=== PATIENT | male | born 1990 | race Caucasian/White ===

== ENCOUNTER 2016-11-19 23:43 | Emergency (ER) | payer SELFPAY ==
[~2016-11-19] VITALS: Ht 177.8 cm; Wt 85.0 kg
[~2016-11-19 23:43] MED LIST: ACET500C5 PO; OMEP20CA9 PO; ONDA4TAB35 PO; RANI150T9 PO
[2016-11-19 23:44] VITALS: Ht 177.8 cm; Wt 85.0 kg
--- NOTE | 2016-11-20 03:17 | ERA ---
ER Documentation Chief Complaint Date/Time DATE: 11/20/16 TIME: 03:09 Chief Complaint requesting ring on left 4th finger to be removed HPI This is a 26-year-old male who presents with a chief complaint of ring being stuck around his left fourth digit. Patient speaks [place] and the significant other is the platform operations director and seems reliable. Patient states that this ring is no significance and it is okay to be cut off. Patient's symptoms started 4 hours ago. They have tried to detach the ring from the finger but were unsuccessful. Patient has never had anything like this before. Patient denies diabetes or other medical conditions including asthma and cardiac disease. Patient has no other complaints at this time and there are no other associated manifestations. Medical history medications have been reviewed as in the nurse' s notes and are consistent. ROS All systems reviewed and are negative except as per history of present illness. Medications Home Meds Active Scripts Ibuprofen* (Motrin*) 400 Mg Tab, 400 MG PO Q8, #30 TAB Prov:SAMANTHA JETT PA-C 11/20/16 Ranitidine Hcl* (Zantac*) 150 Mg Tablet, 150 MG PO BID Y for epigastric pain, # 30 TAB Prov:MIRELA ARZATE. DOT COMPLIANCE SPECIALIST 01/12/15 Omeprazole* (Prilosec*) 20 Mg Capsule.dr, 20 MG PO DAILY for 14 Days, CAP Prov:MIRELA ARZATE NP 01/12/15 Ondansetron Hcl* (Zofran* ODT) 4 mg -ODT Tab.disper, 4 MG PO Q6 Y for NAUSEA AND /OR VOMITING, #10 TAB Prov:MIRELA ARZATE. DOT COMPLIANCE SPECIALIST 01/12/15 Acetaminophen* (Tylophen*) 500 Mg Capsule, 1 CAP PO Q6H Y for PAIN AND OR ELEVATED TEMP, #20 CAP Prov:MIRELA ARZATE. DOT COMPLIANCE SPECIALIST 01/12/15 Allergies Allergies: Coded Allergies: No Known Allergy (Unverified , 01/12/15) PMhx/Soc Medical and Surgical Hx: pt denies Medical Hx, pt denies Surgical Hx Hx Alcohol Use: Yes (occassional) Hx Substance Use: No Hx Tobacco Use: No Smoking Status: Never smoker Physical Exam Vitals Physical Exam Const: Well-appearing well-developed 26-year-old male Head: Atraumatic Eyes: Normal Conjunctiva ENT: Normal External Ears, Nose and Mouth. Neck: Full range of motion..~ No meningismus. Resp: Clear to auscultation bilaterally Cardio: Regular rate and rhythm, no murmurs Abd: Soft, non tender, non distended. Normal bowel sounds Skin: No petechiae or rashes Back: No midline or flank tenderness Ext: Left fourth digit swelling with ring tourniquet. There is capillary refill less than 2 seconds. Patient is neurovascularly intact. Limited range of motion secondary to swelling but is able to move. No cyanosis, or edema Neur: Awake and alert Psych: Normal Mood and Affect Procedures/MDM 6-year-old male presenting with a chief complaint of left fourth digit ring tourniquet. Patient has tried to strain with no success. Patient has not taken any medications for the pain. Patient refuses pain medications at this time. We will go ahead and try to do just a ring with a ring cutter as this really has no significance to the patient. Patient states that this is not a wedding ring. The ring cutter was used by the [employer] I assisted in the final step of removing the ring as there is no pliers to open the ring up after being cut. Patient states that the pain has markedly decreased and still refuses any pain medication. Patient was neurovascularly intact after the removal of the ring which was cut off with a ring cutter. I have very little suspicion for bony, ligamentous or tendon pathology at this time. Patient's vitals are stable and his current condition is appropriate for discharge. Will ahead and discharge the patient with discharge instructions return precautions. Departure Diagnosis: Primary Impression: Finger swelling Condition: Stable Additional Instructions: Return the the emergency department immediately if symptoms worsen or change. If you have any questions regarding medications, ask your pharmacist or us before you leave. If any adverse reactions occur while taking your medications, discontinue the treatment and return to the emergency department immediately. Take your medications as directed, and complete the entire course of treatment. SAMANTHA JETT PA-C Nov 20, 2016 03:16 Take your medications as directed, and complete the entire course of treatment. SAMANTHA JETT PA-C Nov 20, 2016 03:16
[2016-11-20] MEDS ORDERED: IBUP400T22 PO (05:14)
== END 2016-11-20 05:20 | disposition home or self-care (01) ==
LOC: FTE 23:43
DX: M79.89 Other specified soft tissue disorders (principal)
CPT/HCPCS: 99283